=== PATIENT | male | born 1990 | race Caucasian/White ===

== ENCOUNTER 2018-02-20 12:42 | Outpatient (CLI) | payer OTHER ==
--- NOTE | 2018-02-20 17:05 | NM ---
HEPATOBILIARY SCAN: 02/20/18 HISTORY: Nausea. RADIOPHARMACEUTICAL: 5.5 millicuries technetium 99m-Mebrofenin injected intravenously. FINDINGS: There is good tracer extraction by the liver with prominent excretion through the biliary trace and s mall bowel loops and normal filling of the gallbladder. The calculated gallbladder ejection fraction following an oral fatty meal measures 52%. IMPRESSION: Normal exam. POS: SHADY
== END 2018-02-20 12:43 | disposition home or self-care (01) ==
LOC: NM 12:42
PROVIDERS: ATTEND Family Medicine
DX: R11.0 Nausea (principal)
CPT/HCPCS: 78227; A9537

== ENCOUNTER 2018-03-14 08:27 | Outpatient (CLI) | payer OTHER ==
--- NOTE | 2018-03-14 16:01 | NM ---
GASTRIC EMPTYING STUDY: DATE: 03/14/2018. HISTORY: Epigastric abdominal pain. RADIOPHARMACEUTICAL: 1.9 mCi Technetium 99m sulfur colloid in scrambled egg, p.o. VIEWS OBTAINED: Anterior. FINDINGS: Sequential anterior imaging of the abdomen was performed. There is 29% emptying at 32 minutes, 52% e mptying at 56 minutes, 91% emptying at 123 minutes, 94% emptying at 177 minutes, and 100% emptying at 232 minutes. The T-1/2 is 54 minutes. IMPRESSION: Normal gastric emptying study with 100% emptying at 4 hours. POS: SHADY
== END 2018-03-14 08:28 | disposition home or self-care (01) ==
LOC: NM 08:27
PROVIDERS: ATTEND Internal Medicine Gastroenterology
DX: R10.13 Epigastric pain (principal); R11.2 Nausea with vomiting, unspecified; K31.89 Other diseases of stomach and duodenum
CPT/HCPCS: 78264; A9541

== ENCOUNTER 2020-04-22 20:45 | Emergency (ER) | payer OTHER, SELFPAY ==
[2020-04-22 21:13] LABS: Bilirubin Negative (Negative); Blood, Urine Negative (Negative); Clarity Clear (Clear); Glucose, Urine (Dipstick) Normal (Negative); Ketone, Urine Negative (Negative); Leukocyte Negative Leu/uL (Negative); Nitrite Negative (Negative); Protein, Urine (Dipstick) Negative (Neg-Trace); Specific Gravity, Urine 1.012 (1.002-1.036); Urobilinogen Normal mg/dL (Less than 2); pH, Urine 7.5 (5.0-9.0)
[2020-04-22] MEDS ORDERED: Ondansetron PF 4 MG/2 ML Vial ONE (21:16)
[2020-04-22 21:33] LABS: #Eosinphils 0.1 thou/uL (0.0-0.7); #Lymphocytes 1.5 thou/uL (1.20-3.40); #Monocytes 0.4 thou/uL (0.11-0.59); #Neutrophils 4.5 thou/uL (1.40-6.50); %Basophils 0.3 % (0.0-1.0); %Eosinophils 1.7 % (0.0-10.0); %Lymphocytes 23.3 % (21.0-51.0); %Monocytes 6.1 % (0.0-10.0); %Neutrophils 68.6 % (42.0-75.0); Hemoglobin 15.3 g/dL (14.0-18.0); Mean Corpuscular HGB CONC 35.3 g/dL (32.0-36.0); Mean Corpuscular Hemoglobin 32.9 pg (27.0-31.0); Mean Corpuscular Volume 93.1 fL (78.0-98.0); Mean Platelet Volume 9.3 fL (7.4-10.4); Platelet Count 167 thou/uL (130-400); RBC Distribution Width 11.1 % (11.5-14.5); Red Blood Cell (RBC) Count 4.65 mill/uL (4.70-6.10); White Blood Cell (WBC) Count 6.6 thou/uL (4.8-10.8)
[2020-04-22 21:53] LABS: ALT (SGPT) 25 U/L (8-55); AST (SGOT) 20 U/L (5-34); Albumin 4.7 g/dL (3.5-5.0); Alkaline Phosphatase 54 U/L (40-110); Anion Gap 12 mmol/L (10-20); BUN (Urea Nitrogen) 11 mg/dL (8.9-20.6); Bilirubin, Total 0.7 mg/dL (0.2-1.2); Calc. Creatinine Clearance 0 mL/min (70-130); Calcium 9.5 mg/dL (7.8-10.44); Carbon Dioxide 29 mmol/L (22-29); Chloride 100 mmol/L (98-107); Globulin 2.8 g/dL (2.4-3.5); Glucose 117 mg/dL (70-105); Lipase 25 U/L (8-78); Potassium 4.2 mmol/L (3.5-5.1); Protein, Total 7.5 g/dL (6.0-8.3); Sodium 137 mmol/L (136-145)
== END 2020-04-22 22:35 | disposition home or self-care (01) ==
LOC: ERS 20:45
DX: R11.2 Nausea with vomiting, unspecified (principal); F17.220 Nicotine dependence, chewing tobacco, uncomplicated
CPT/HCPCS: 80053; 81003; 83690; 85025; 96372; 96374; J0500; J2405